=== PATIENT | female | born 1955 | race African-American/Black ===

== ENCOUNTER 2023-03-15 18:15 | Inpatient (IN) | payer MEDICAID ==
[~2023-03-15] VITALS: Ht 158.8 cm; Wt 85.1 kg
[2023-03-15 18:52] LABS: BASOPHILS % (AUTO) 0.7 % (0.0-2.0); EOSINOPHILS % (AUTO) 1.5 % (1.0-6.0); HEMATOCRIT 40.7 % (36-46); HEMOGLOBIN 13.3 g/dL (12.0-16.0); LYMPHOCYTES # (AUTO) 3.7 K/uL (1.0-4.8); LYMPHOCYTES % (AUTO) 53.7 % (22.0-44.0); MEAN CORPUSCULAR HEMOGLOBIN 26.4 pg (26.0-34.0); MEAN CORPUSCULAR HGB CONC 32.7 G/dL (31.0-37.0); MEAN CORPUSCULAR VOLUME 81 fL (80-100); MONOCYTES # (AUTO) 0.7 K/uL (0.1-1.0); MONOCYTES % (AUTO) 10.2 % (2.0-9.0); NEUTROPHILS # (AUTO) 2.3 K/uL (1.8-7.7); NEUTROPHILS % (AUTO) 33.9 % (40.0-70.0); PLATELET COUNT (AUTO) 309 K/uL (150-450); RED BLOOD CELL COUNT(AUTO) 5.04 MIL/uL (4.00-5.20); RED CELL DISTRIBUTION WIDTH 17.4 % (11.5-14.5); WHITE BLOOD COUNT (AUTO) 6.9 K/uL (4.5-11.0)
[2023-03-15] MEDS ORDERED: IOHEXOL 350 MG/ML 100 ML VIAL ONE (18:53)
[2023-03-15] MEDS ORDERED: SODIUM CHLORIDE 0.9% 100 ML ONE (18:53)
[2023-03-15 19:03] LABS: PROTHROMBIN TIME 10.1 SEC (9.4-11.6)
[2023-03-15 19:27] LABS: ANION GAP 11 mmol/L (8-16); CALCIUM, TOTAL 9.3 mg/dL (8.8-10.5); CARBON DIOXIDE 26 mmol/L (22-29); CHLORIDE 105 mmol/L (98-107); CREATININE 0.72 mg/dL (0.60-1.30); GLOMERULAR FILTR. RATE CALC > 60 mL/min (>60); GLUCOSE,RANDOM 121 mg/dL (70-110); POTASSIUM 3.4 mmol/L (3.5-5.1); SODIUM SERUM 142 mmol/L (136-145); UREA NITROGEN, BLOOD 21 mg/dL (7-18)
[2023-03-15] MEDS ORDERED: ASPIRIN 81 MG CHEWABLE TABLET PO ONE (19:30)
[2023-03-15] MEDS ORDERED: CLOPIDOGREL BISULFATE 75 MG TABLET PO ONE (19:30)
[2023-03-15 19:31] LABS: ALANINE AMINOTRANSFERASE 13 U/L (12-78); ALBUMIN 3.3 g/dL (3.4-5.0); ALKALINE PHOSPHATASE 96 U/L (46-116); ASPARTATE AMINOTRANSFERASE 17 U/L (15-37); BILIRUBIN,TOTAL 0.1 mg/dL (0.1-1.0)
[2023-03-15 19:41] LABS: TROPONIN I-HIGH SENSITIVITY 4 ng/L (<51)
[2023-03-15] MEDS ORDERED: ONDANSETRON HCL 4 MG/2 ML VIAL IVP PRN ×2 (20:45→21:15)
[2023-03-15] MEDS ORDERED: ACETAMINOPHEN 325 MG TABLET PO PRN (20:45)
[2023-03-15] MEDS ORDERED: ASPIRIN 300 MG RECTAL SUPPOSITORY PR ONE (21:15)
[2023-03-15 22:10] LABS: CHOL/HDL RATIO 3.4 (3.9-5.7)
[2023-03-15 23:39] VITALS: BP 147/88; PULSE 86; RESP 19; TEMP 98.5
[2023-03-16] MEDS ORDERED: POTASSIUM CHL 20 MEQ/0.45% NS 1,000 ML IV ONE
[2023-03-16] MEDS: HEPARIN SODIUM,PORCINE 5,000 UNITS/ML VIAL SQ SCH ×3 (00:17→16:48)
[2023-03-16 04:09] VITALS: BP 103/72; PULSE 66; RESP 18; TEMP 97.7
[2023-03-16 07:22] VITALS: BP 119/61; PULSE 60; RESP 18; TEMP 98
[2023-03-16 07:33] LABS: BASOPHILS % (AUTO) 0.6 % (0.0-2.0); HEMOGLOBIN 12.9 g/dL (12.0-16.0); LYMPHOCYTES # (AUTO) 3.1 K/uL (1.0-4.8); LYMPHOCYTES % (AUTO) 54.4 % (22.0-44.0); MEAN CORPUSCULAR HEMOGLOBIN 26.6 pg (26.0-34.0); MEAN CORPUSCULAR VOLUME 81 fL (80-100); MONOCYTES # (AUTO) 0.7 K/uL (0.1-1.0); MONOCYTES % (AUTO) 11.6 % (2.0-9.0); NEUTROPHILS # (AUTO) 1.8 K/uL (1.8-7.7); NEUTROPHILS % (AUTO) 31.4 % (40.0-70.0); PLATELET COUNT (AUTO) 270 K/uL (150-450); RED BLOOD CELL COUNT(AUTO) 4.84 MIL/uL (4.00-5.20); RED CELL DISTRIBUTION WIDTH 16.9 % (11.5-14.5); WHITE BLOOD COUNT (AUTO) 5.6 K/uL (4.5-11.0)
[2023-03-16 07:43] LABS: ANION GAP 9 mmol/L (8-16); CALCIUM, TOTAL 8.9 mg/dL (8.8-10.5); CARBON DIOXIDE 24 mmol/L (22-29); CHLORIDE 107 mmol/L (98-107); GLOMERULAR FILTR. RATE CALC > 60 mL/min (>60); GLUCOSE,RANDOM 94 mg/dL (70-110); POTASSIUM 3.5 mmol/L (3.5-5.1); SODIUM SERUM 140 mmol/L (136-145); UREA NITROGEN, BLOOD 17 mg/dL (7-18)
[2023-03-16 08:01] LABS: COVID AG,FIA SOURCE NASOPHARYNGEAL
[2023-03-16 08:21] LABS: SARS-COV2 (COVID) ANTIGEN,FIA Negative (Negative)
[2023-03-16] MEDS: ATORVASTATIN CALCIUM 40 MG TABLET PO SCH (09:02)
[2023-03-16] MEDS: DOCUSATE SODIUM 100 MG CAPSULE PO SCH ×2 (09:02→20:36)
[2023-03-16 11:42] VITALS: BP 108/66; PULSE 64; RESP 20; TEMP 98.1
[2023-03-16 15:25] VITALS: BP 125/75; PULSE 63; RESP 18; TEMP 98.2
[2023-03-16] MEDS ORDERED: ASPIRIN 81 MG CHEWABLE TABLET PO ONE (16:00)
[2023-03-16 16:51] LABS: PH,URINE DRUG SCREEN 5.5 (5.0-8.0)
[2023-03-16 16:55] LABS: AMPHET/METH SCREEN,URINE NEGATIVE (NEGATIVE); BARBITURATE SCREEN, URINE NEGATIVE (NEGATIVE); BENZODIAZEPINES SCREEN,URINE NEGATIVE (NEGATIVE); CANNABINOID SCREEN,URINE NEGATIVE (NEGATIVE); COCAINE SCREEN,URINE POSITIVE (NEGATIVE); METHADONE SCREEN, URINE NEGATIVE (NEGATIVE); OPIATE SCREEN,URINE NEGATIVE (NEGATIVE); PHENCYCLIDINE SCREEN,URINE NEGATIVE (NEGATIVE)
[2023-03-16 16:56] LABS: ALCOHOL, URINE DRUG SCREEN NEGATIVE (NEGATIVE)
[2023-03-16 20:40] VITALS: BP 121/47; PULSE 70; RESP 18; TEMP 98.9
[2023-03-17] MEDS: HEPARIN SODIUM,PORCINE 5,000 UNITS/ML VIAL SQ SCH ×4 (00:43→23:35)
[2023-03-17 00:57] VITALS: BP_SYST 118; BP_SYST 154; BP_DIAS 103; BP_DIAS 69; PULSE 64; PULSE 70; RESP 18; RESP 20; TEMP 97.8; TEMP 97.9
[2023-03-17] MEDS: ACETAMINOPHEN 325 MG TABLET PO PRN (03:29)
[2023-03-17 04:23] VITALS: BP 140/79; PULSE 66; RESP 18; TEMP 98.2
[2023-03-17 07:52] VITALS: BP 131/74; PULSE 66; RESP 18; TEMP 98.1
[2023-03-17] MEDS: ASPIRIN 81 MG CHEWABLE TABLET PO SCH (08:35)
[2023-03-17] MEDS: ATORVASTATIN CALCIUM 40 MG TABLET PO SCH (08:35)
[2023-03-17] MEDS: DOCUSATE SODIUM 100 MG CAPSULE PO SCH ×2 (08:35→21:00)
[2023-03-17] MEDS: CLOPIDOGREL BISULFATE 75 MG TABLET PO SCH (10:37)
[2023-03-17 11:35] VITALS: BP 119/71; PULSE 71; RESP 20; TEMP 98.3
[2023-03-17 15:52] VITALS: BP 124/76; PULSE 78; RESP 20; TEMP 99
[2023-03-18 00:15] VITALS: BP 143/68; PULSE 70; RESP 20; TEMP 97.7
[2023-03-18] MEDS: ACETAMINOPHEN 325 MG TABLET PO PRN (04:04)
[2023-03-18 04:56] VITALS: BP 112/82; PULSE 68; RESP 20; TEMP 97.6
[2023-03-18 08:31] VITALS: BP 99/57; PULSE 68; RESP 19; TEMP 98.6
[2023-03-18] MEDS: CLOPIDOGREL BISULFATE 75 MG TABLET PO SCH (08:31)
[2023-03-18] MEDS: HEPARIN SODIUM,PORCINE 5,000 UNITS/ML VIAL SQ SCH ×3 (08:31→23:54)
[2023-03-18] MEDS: ASPIRIN 81 MG CHEWABLE TABLET PO SCH (08:31)
[2023-03-18] MEDS: ATORVASTATIN CALCIUM 40 MG TABLET PO SCH (08:31)
[2023-03-18] MEDS: DOCUSATE SODIUM 100 MG CAPSULE PO SCH ×2 (08:32→20:02)
[2023-03-18 11:10] VITALS: BP 107/59; PULSE 76; RESP 18; TEMP 97.6
[2023-03-18 16:04] VITALS: BP 95/57; PULSE 77; RESP 19; TEMP 98.5
[2023-03-18 20:38] VITALS: BP 125/70; PULSE 100; RESP 18; TEMP 98.1
[2023-03-19 00:42] VITALS: BP 116/69; PULSE 88; RESP 18; TEMP 98
[2023-03-19 08:00] VITALS: BP 87/55; PULSE 74; RESP 18; TEMP 97.9
[2023-03-19] MEDS: ASPIRIN 81 MG CHEWABLE TABLET PO SCH (08:56)
[2023-03-19] MEDS: ATORVASTATIN CALCIUM 40 MG TABLET PO SCH (08:57)
[2023-03-19] MEDS: CLOPIDOGREL BISULFATE 75 MG TABLET PO SCH (08:57)
[2023-03-19] MEDS: HEPARIN SODIUM,PORCINE 5,000 UNITS/ML VIAL SQ SCH ×3 (08:57→23:34)
[2023-03-19] MEDS: DOCUSATE SODIUM 100 MG CAPSULE PO SCH ×2 (08:57→21:00)
[2023-03-19 11:10] VITALS: BP 100/62; PULSE 74; RESP 20; TEMP 98.1
[2023-03-19 15:35] VITALS: BP 106/61; PULSE 70; RESP 18; TEMP 97.9
[2023-03-19 19:21] VITALS: BP 110/70; PULSE 63; RESP 18; TEMP 97.9
[2023-03-19 23:54] VITALS: BP 96/61; PULSE 76; RESP 18; TEMP 98.8
[2023-03-20 04:24] VITALS: BP 105/63; PULSE 75; RESP 18; TEMP 98.1
[2023-03-20 08:00] VITALS: BP 90/56; PULSE 77; RESP 18; TEMP 97.4
[2023-03-20] MEDS: ATORVASTATIN CALCIUM 40 MG TABLET PO SCH (08:55)
[2023-03-20] MEDS: CLOPIDOGREL BISULFATE 75 MG TABLET PO SCH (08:55)
[2023-03-20] MEDS: HEPARIN SODIUM,PORCINE 5,000 UNITS/ML VIAL SQ SCH (08:55)
[2023-03-20] MEDS: ASPIRIN 81 MG CHEWABLE TABLET PO SCH (08:56)
[2023-03-20 09:00] VITALS: BP 91/56; PULSE 78
[2023-03-20] MEDS: DOCUSATE SODIUM 100 MG CAPSULE PO SCH (09:00)
[2023-03-20 12:00] VITALS: BP 97/74; PULSE 98; RESP 18; TEMP 98.8
[2023-03-20] MEDS ORDERED: ATOR40TA28 PO (12:34)
[2023-03-20] MEDS ORDERED: ASPI-1444 PO (12:34)
[2023-03-20] MEDS ORDERED: SODIUM CHLORIDE 0.9% 500 ML IV ONE (12:45)
[2023-03-20 13:07] LABS: BASOPHILS % (AUTO) 0.3 % (0.0-2.0); EOSINOPHILS % (AUTO) 1.8 % (1.0-6.0); HEMATOCRIT 42.5 % (36-46); HEMOGLOBIN 13.9 g/dL (12.0-16.0); LYMPHOCYTES # (AUTO) 2.7 K/uL (1.0-4.8); LYMPHOCYTES % (AUTO) 41.6 % (22.0-44.0); MEAN CORPUSCULAR HEMOGLOBIN 26.3 pg (26.0-34.0); MEAN CORPUSCULAR HGB CONC 32.7 G/dL (31.0-37.0); MEAN CORPUSCULAR VOLUME 81 fL (80-100); MONOCYTES # (AUTO) 0.4 K/uL (0.1-1.0); MONOCYTES % (AUTO) 6.3 % (2.0-9.0); NEUTROPHILS # (AUTO) 3.3 K/uL (1.8-7.7); PLATELET COUNT (AUTO) 333 K/uL (150-450); RED BLOOD CELL COUNT(AUTO) 5.27 MIL/uL (4.00-5.20); RED CELL DISTRIBUTION WIDTH 17.3 % (11.5-14.5); WHITE BLOOD COUNT (AUTO) 6.6 K/uL (4.5-11.0)
[2023-03-20 13:25] LABS: ANION GAP 11 mmol/L (8-16); CALCIUM, TOTAL 9.5 mg/dL (8.8-10.5); CARBON DIOXIDE 27 mmol/L (22-29); CHLORIDE 104 mmol/L (98-107); CREATININE 0.72 mg/dL (0.60-1.30); GLOMERULAR FILTR. RATE CALC > 60 mL/min (>60); GLUCOSE,RANDOM 102 mg/dL (70-110); POTASSIUM 4.2 mmol/L (3.5-5.1); SODIUM SERUM 142 mmol/L (136-145); UREA NITROGEN, BLOOD 18 mg/dL (7-18)
[2023-03-20 14:00] VITALS: BP 107/77
== END 2023-03-20 17:05 | disposition home health service (06) | DRG 45 ==
LOC: EMS 18:18 → EDBD 18:18 → 5S 22:04
PROVIDERS: ADMIT Internal Medicine; ATTEND Internal Medicine
DX: I63.9 Cerebral infarction, unspecified (principal); G81.94 Hemiplegia, unspecified affecting left nondominant side; E87.6 Hypokalemia; F14.10 Cocaine abuse, uncomplicated; Z20.822 Contact with and (suspected) exposure to COVID-19; F17.200 Nicotine dependence, unspecified, uncomplicated; R29.710 NIHSS score 10; R29.810 Facial weakness; Z88.0 Allergy status to penicillin
CPT/HCPCS: 70496; 70498; 70551; 71045; 80048; 80053; 80061; 80307; 83735; 84484; 85025; 85610; 92521; 93005; 93306; 97110; 97112; 97116; 97163; 97167; 97530; 97535; 99291; G0378; J1644; J3480; J7040; J7050; Q9967; 36415-L1; 36415-TC; 70450; 70450-TC